=== PATIENT | male | born 1960 | race Caucasian/White ===

== ENCOUNTER 2018-06-08 13:34 | Emergency (ER) | payer BC, OTHER | END 2018-06-08 15:26 | disposition home or self-care (01) | LOC: M ED 13:34 | DX: J06.9 Acute upper respiratory infection, unspecified (principal); H65.03 Acute serous otitis media, bilateral; Z91.040 Latex allergy status; Z79.899 Other long term (current) drug therapy; Z79.51 Long term (current) use of inhaled steroids | CPT/HCPCS: 99283 ==

== ENCOUNTER → 2019-05-14 | Outpatient (CLI) | payer BC ==
[~2019-05-14] MED LIST: E-Z-GAS II EFFERVESCENT PACKET (SODIUM BICARB./CITRIC ACID/SIMETHICONE) As Ordered ONE; E-Z-HD 98% w/w 340GM SUSP BTL As Ordered ONE; E-Z-PAQUE 96% w/w SUSP 176GM BTL As Ordered ONE; FINA5TAB2 PO; FLON1SPR NARES; LISI40TA PO; MEDR4PAK PO; OMEP20CA4 PO; ROSU40TA4 PO; SYMB16INH INH; VENTAER INH; VITA50005 PO
--- NOTE | 2019-05-14 16:46 | REP ---
UPPER GI AIR CONTRAST AND SMALL BOWEL FOLLOW THROUGH The procedure was performed under the direct supervision of Dr. Bruce. The images were reviewed with Dr. 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 The intestinal gas pattern is non-specific. There are coils noted in the right lower quadrant consistent with hernia repair. Liquid barium and gas producing crystals were given in the erect position as well as liquid barium in the prone oblique position in order to perform a double contrast upper GI examination. Additionally liquid barium was given at the end of the examination in order to perform a small bowel follow through. The oral and pharyngeal stages of deglutition are unremarkable. Esophageal transport is prompt and efficient and there is no esophagitis, stricture or mucosal ring. There is a sliding type hiatal hernia. There is gastroesophageal reflux demonstrated to above the level of the ez. The stomach gonzalez are normally outlined . The rugal folds are smooth and regular. There is no gastritis neoplasm or ulcer disease. The duodenal gonzalez are normally outlined . The mucosal folds are smooth and regular. There is no duodenitis pancreatitis peptic ulcer disease or neoplasm. The visualized portion of the proximal small bowel appears normal in course and caliber. The barium column was followed through the small bowel to the level of the terminal ileum. Small bowel transit time is approximately 25 minutes . During fluoroscopy gentle palpation shows all loops are freely movable and pliable. There are no fixed or angulated loops. The small bowel mucosal pattern is normal in course and caliber. There is no transition to suggest a partial small-bowel obstruction. Spot filming of the terminal ileum shows it to be unremarkable. Impression: There is a sliding type hiatal hernia. There is gastroesophageal reflux demonstrated to above the level of the ez. Otherwise unremarkable double contrast upper GI and small bowel follow-through examination. 2 minutes of fluoro time was utilized for this procedure. Electronically Signed by MONICA Regalado 05/14/2019 02:31 P Electronically Signed by Jordi Bruce MD 05/14/2019 04:37 P
== END ==
LOC: M RAD 09:17
PROVIDERS: ATTEND Family Medicine
DX: K44.9 Diaphragmatic hernia without obstruction or gangrene (principal); K21.9 Gastro-esophageal reflux disease without esophagitis

== ENCOUNTER → 2022-02-28 | Outpatient (CLI) | payer OTHER, BC ==
[~2022-02-28] MED LIST changes: +AREDS PO; -E-Z-GAS II EFFERVESCENT PACKET (SODIUM BICARB./CITRIC ACID/SIMETHICONE) As Ordered ONE; -E-Z-HD 98% w/w 340GM SUSP BTL As Ordered ONE; -E-Z-PAQUE 96% w/w SUSP 176GM BTL As Ordered ONE; +EZET10TA21; -LISI40TA PO; +LISI40TA4 PO; +METO1TAB7; +OMEP1CAP73 PO; -OMEP20CA4 PO; +VITA100093 PO
== END ==
LOC: M LABSMTC 09:55
PROVIDERS: ATTEND Anesthesiology
DX: Z01.812 Encounter for preprocedural laboratory examination (principal)

== ENCOUNTER 2022-03-04 07:17 | Day surgery (SDC) | payer OTHER, BC ==
[~2022-03-04] VITALS: Ht 172.7 cm; Wt 87.1 kg
[~2022-03-04 07:17] MED LIST changes: +LIDOCAINE 2% 100MG/5ML SDV (FOR ANES.) As Ordered ONE; +NS 1,000 ML IV ONE; +propofoL 200 MG/20 ML VIAL As Ordered ONE
[2022-03-04 09:15] VITALS: BP 148/81
== END 2022-03-04 09:26 | disposition home or self-care (01) ==
LOC: M OPP 07:17
PROVIDERS: ATTEND Internal Medicine Gastroenterology
DX: Z12.11 Encounter for screening for malignant neoplasm of colon (principal); K57.30 Diverticulosis of large intestine without perforation or abscess without bleeding; K64.0 First degree hemorrhoids; I10 Essential (primary) hypertension; N40.0 Benign prostatic hyperplasia without lower urinary tract symptoms; Z79.02 Long term (current) use of antithrombotics/antiplatelets; Z79.51 Long term (current) use of inhaled steroids; Z79.818 Long term (current) use of other agents affecting estrogen receptors and estrogen levels; Z79.899 Other long term (current) drug therapy; Z91.040 Latex allergy status

== ENCOUNTER → 2022-04-25 | Outpatient (CLI) | payer BC ==
[~2022-04-25] MED LIST changes: -LIDOCAINE 2% 100MG/5ML SDV (FOR ANES.) As Ordered ONE; -NS 1,000 ML IV ONE; -propofoL 200 MG/20 ML VIAL As Ordered ONE
== END ==
LOC: M RAD 07:47
PROVIDERS: ATTEND Family Medicine
DX: Z79.01 Long term (current) use of anticoagulants (principal)